=== PATIENT | male | born 1985 | race African-American/Black ===

== ENCOUNTER 2018-11-25 21:08 | Emergency (ER) | payer MEDICAID, OTHER ==
[~2018-11-25] VITALS: Ht 180.3 cm; Wt 68.0 kg
[2018-11-25 21:14] VITALS: BP 129/90
--- NOTE | 2018-11-25 21:17 | NUR ---
TO LOBBY A/W BED AMBULATORY
--- NOTE | 2018-11-25 22:31 | NUR ---
PT AMBULATED TO BED 05.
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
[2018-11-25 23:05] LABS: APPEARANCE,URINE CLOUDY (CLEAR); BILIRUBIN,URINE 1+ (NEGATIVE); BLOOD, URINE 2+ (NEGATIVE); COLOR,URINE YELLOW (YELLOW); LEUKOCYTE ESTERASE ,URINE NEGATIVE (NEGATIVE); NITRITE, URINE NEGATIVE (NEGATIVE); UGLUCOSE NEGATIVE (NEGATIVE)
[2018-11-25 23:28] LABS: RBC,URINE 11-20 (MOD) /HPF (0-5)
[2018-11-25 23:29] LABS: OTHER CRYSTALS,URINE AMMONIUM BIURATES 3+ /HPF (None Seen)
[2018-11-25] MEDS ORDERED: cefTRIAXone 250 MG in LIDOCAINE MPF 1% - 5 mL VIAL 0.9 ML IM ONE (23:45)
[2018-11-25] MEDS ORDERED: AZITHROMYCIN 250 MG TAB PO ONE (23:45)
[2018-11-26 00:05] VITALS: BP 114/78
--- NOTE | 2018-11-26 00:05 | NUR ---
Patient discharged with v/s stable. Written and verbal after care instructions given and explained. Patient verbalized understanding. Ambulatory with steady gait. All questions addressed prior to discharge. Advised to follow up with PMD. Addendum: 11/26/18 at 0006 by ODETTE Referred to Rikki evans/ phone number
[2018-11-28 15:12] LABS: CHLAMYDIA TRACHOMATIS AMP DNA Negative (Negative)
== END 2018-11-26 00:05 | disposition home or self-care (01) ==
LOC: MED 21:08
DX: N39.0 Urinary tract infection, site not specified (principal)
CPT/HCPCS: 36415; 81001; 87086; 87491; 96372; 99283; J0696; J2001

== ENCOUNTER 2019-07-06 23:56 | Emergency (ER) | payer OTHER ==
[~2019-07-06] VITALS: Ht 182.9 cm; Wt 73.9 kg
[2019-07-07 00:03] VITALS: BP 134/80
[2019-07-07 00:49] VITALS: BP 134/80
== END 2019-07-07 00:49 | disposition home or self-care (01) ==
LOC: MED 23:56
DX: T78.3XXA Angioneurotic edema, initial encounter (principal); N45.1 Epididymitis; R03.0 Elevated blood-pressure reading, without diagnosis of hypertension
CPT/HCPCS: 99283

== ENCOUNTER 2019-10-19 23:17 | Emergency (ER) | payer OTHER ==
[~2019-10-19] VITALS: Ht 180.3 cm; Wt 75.7 kg
[2019-10-19 23:25] VITALS: BP 119/67
--- NOTE | 2019-10-19 23:31 | NUR ---
PT BACK TO LOBBY.
[2019-10-20 01:34] VITALS: BP 119/67
--- NOTE | 2019-10-20 01:35 | NUR ---
PATIENT LEFT WITHOUT BEING SEEN BY DR. MOE. NO FURTHER CARE PROVIDED FOR PATIENT.
== END 2019-10-20 01:35 | disposition left against medical advice (07) ==
LOC: MED 23:17
DX: K13.0 Diseases of lips (principal); Z53.21 Procedure and treatment not carried out due to patient leaving prior to being seen by health care provider

== ENCOUNTER 2020-08-22 23:39 | Emergency (ER) | payer OTHER ==
[~2020-08-22] VITALS: Ht 180.3 cm; Wt 79.4 kg
[2020-08-22 23:55] VITALS: BP 118/75
--- NOTE | 2020-08-22 23:55 | NUR ---
DR POLO EXAMINING PT
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
--- NOTE | 2020-08-22 23:59 | NUR ---
TO [facility], AMBULATORY
--- NOTE | 2020-08-23 00:22 | NUR ---
PT AMBULATED TO ED ROOM 7. STEADY GAIT.
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
--- NOTE | 2020-08-23 00:27 | NUR ---
WIG COMBER PICKED UP PT VIA WHEELCHAIR TO GET CT SCAN.
--- NOTE | 2020-08-23 00:34 | NUR ---
PT IS BACK FROM CT SCAN. PT IS STABLE.
[2020-08-23] MEDS ORDERED: ONDANSETRON 4 MG/2 ML VIAL IVP ONE ×2 (01:00→01:40)
[2020-08-23] MEDS ORDERED: MORPHINE SULFATE 4 MG/ML SYR IVP ONE ×2 (01:00→01:40)
[2020-08-23] MEDS ORDERED: levETIRAcetam 1,000 MG in NACL 0.9% 100 ML IV ONE (01:05)
[2020-08-23] MEDS ORDERED: levETIRAcetam 100 MG/ML VIAL IV ONE (01:13)
--- NOTE | 2020-08-23 01:20 | NUR ---
IV 20 G RAC STARTED. LABS DRAWN AND HAND GIVEN TO TRUMAN COOPER TECH AT BEDSIDE.
--- NOTE | 2020-08-23 01:35 | NUR ---
ROBERTO CARLOS KRAMER COLLECTED AND WALKED TO LAB.
--- NOTE | 2020-08-23 01:44 | NUR ---
WITH CONSENT FROM PATIENT, SPOKE WITH PATIENTS , EVARISTO, IN THE LOBBY. ANSWERED ALL QUESTIONS. GAVE PATIENT RING AND CELL PHONE COOK HELPER PRESERVES. WILL UPDATE ACCORDINGLY.
[2020-08-23 01:56] LABS: BASOPHILS % (AUTO) 0.4 % (0.0-2.0); EOSINOPHILS # (AUTO) 0.2 K/uL (0-0.4); EOSINOPHILS % (AUTO) 3.5 % (0.0-4.0); HEMATOCRIT 45.3 % (36-52); HEMOGLOBIN 15.1 g/dL (12.0-18.0); LYMPHOCYTES # (AUTO) 2.2 K/uL (2.0-11.5); LYMPHOCYTES % (AUTO) 49.7 % (20.5-51.1); MEAN CORPUSCULAR HEMOGLOBIN 29 pg (27-31); MEAN CORPUSCULAR HGB CONC 33 g/dL (33-37); MEAN CORPUSCULAR VOLUME 86.4 fL (80-94); MONOCYTES # (AUTO) 0.6 K/uL (0.8-1.0); MONOCYTES % (AUTO) 12.8 % (1.7-9.3); NEUTROPHILS # (AUTO) 1.5 K/uL (1.8-7.7); NEUTROPHILS % (AUTO) 33.6 % (42.2-75.2); PLATELET COUNT (AUTO) 157 K/uL (140-450); RED BLOOD CELL COUNT(AUTO) 5.24 MIL/uL (4.20-6.10); RED CELL DISTRIBUTION WIDTH 14.3 % (11.6-13.7); WHITE BLOOD COUNT (AUTO) 4.5 K/uL (4.8-10.8)
[2020-08-23 02:22] LABS: ALBUMIN 4.4 g/dL (3.4-5.0); ANION GAP 13.3 (8-16); CARBON DIOXIDE 27.3 mmol/L (21-32); CREATININE 1.2 mg/dL (0.6-1.3); POTASSIUM 3.6 mmol/L (3.5-5.1); TOTAL BILIRUBIN 0.8 mg/dL (0.0-1.0)
--- NOTE | 2020-08-23 03:00 | NUR ---
Patient to be transferred to [facility]. Is being transferred due to HIGHER LEVEL OF CARE. Receiving facility has accepting physician and available space. ER physician has signed transfer form. Patient or responsible libertarian has agreed to transfer and signed form. Patient belongings inventoried and will be sent with patient. Copy of nursing notes, lab reports, EKG, Physicians Orders and X-rays to be sent with patient. Report called to GREG HENRY at receiving facility. [facility] [place] ambulance service has been called for transfer. ETA is 90 MIN. TO 2 HOURS.
[2020-08-23 03:45] VITALS: BP 112/66
--- NOTE | 2020-08-23 03:45 | NUR ---
PATIENT TRANSFERED BY [facility] VIA GURNEY.
== END 2020-08-23 03:45 ==
LOC: MED 23:39
DX: S06.5X0A Traumatic subdural hemorrhage without loss of consciousness, initial encounter (principal); Z20.822 Contact with and (suspected) exposure to COVID-19; V98.8XXA Other specified transport accidents, initial encounter; Y93.89 Activity, other specified; Y92.89 Other specified places as the place of occurrence of the external cause; Y99.8 Other external cause status
CPT/HCPCS: 36415; 70450; 72131; 80053; 85025; 87426; 96365; 96375; 99291; 99292; J1953; J2270; J2405